=== PATIENT | female | born 2005 | race Caucasian/White ===

== ENCOUNTER 2024-02-17 05:44 | Emergency (ER) | payer BC ==
[~2024-02-17] VITALS: Ht 157.5 cm; Wt 152.0 kg
[2024-02-17 05:58] VITALS: BP 146/88; PULSE 76; RESP 20; TEMP 98.7; O2SAT 98
[2024-02-17] MEDS ORDERED: AMOX1TAB12 PO (06:23)
[2024-02-17] MEDS ORDERED: CIPR10DR LEFT EAR (06:23)
[2024-02-17 06:24] VITALS: BP 137/93; PULSE 72; RESP 20; TEMP 98.7; O2SAT 98
[2024-02-17] MEDS: MOTRIN PO STA (06:32)
== END 2024-02-17 06:32 | disposition home or self-care (01) ==
LOC: ER 05:44
DX: H66.92 Otitis media, unspecified, left ear (principal); H60.502 Unspecified acute noninfective otitis externa, left ear; E07.9 Disorder of thyroid, unspecified
CPT/HCPCS: 99283